=== PATIENT | male | born 1990 | race Caucasian/White ===

== ENCOUNTER 2025-03-30 11:30 | Outpatient (REF) | payer SELFPAY ==
[2025-04-02 12:30] LABS: Lyme Ab w Rflx to Lyme Confirm Negative (Negative)
[2025-04-03 09:11] LABS: B. miyamotoi PCR Negative (Negative); Babesia divergens/MO-1 Negative (Negative); Ehrlichia muris eauclairensis Negative (Negative)
== END 2025-03-30 11:31 | disposition home or self-care (01) ==
LOC: LBN 11:30
PROVIDERS: Nurse Practitioner Family
DX: S00.06XA Insect bite (nonvenomous) of scalp, initial encounter (principal); W57.XXXA Bitten or stung by nonvenomous insect and other nonvenomous arthropods, initial encounter
CPT/HCPCS: 87798; 86618